=== PATIENT | male | born 2000 | race Caucasian/White ===

== ENCOUNTER 2019-07-10 20:42 | Emergency (ER) | payer BC ==
[~2019-07-10] VITALS: Ht 180.3 cm; Wt 65.0 kg
[2019-07-10] MEDS ORDERED: LORazepam 2 mg/ml vial IV ONE (21:10)
[2019-07-10] MEDS ORDERED: normal saline 1000ML IV soln IVB ONE ×2 (21:10→22:05)
[2019-07-10] MEDS ORDERED: metoclopramide 5 mg/ml inj IV ONE (21:10)
[2019-07-10 21:32] LABS: BASOPHILS % (AUTO) 0.2 % (0-1); EOSINOPHILS % (AUTO) 0 % (0-6); HEMATOCRIT 44.1 % (42.0-52.0); HEMOGLOBIN 15.1 g/dl (14.0-17.9); LYMPHOCYTES # (AUTO) 0.9 X10'3 (1.1-4.8); LYMPHOCYTES % (AUTO) 6.5 % (21-51); MEAN CORPUSCULAR HEMOGLOBIN 30.4 PG (27.0-31.0); MEAN CORPUSCULAR HGB CONC 34.2 g/dL (33.0-36.5); MEAN CORPUSCULAR VOLUME 88.8 FL (78-98); MEAN PLATELET VOLUME 7.9 FL (7.4-10.4); MONOCYTES # (AUTO) 0.6 X10'3 (0-0.9); NEUTROPHILS # (AUTO) 13.1 X10'3 (1.8-7.7); NEUTROPHILS % (AUTO) 89.3 % (42-75); PLATELET COUNT 185 X10'3 (140-440); RED BLOOD COUNT 4.97 X10'6 (4.70-6.10); RED CELL DISTRIBUTION WIDTH 12.8 % (11.5-14.5); WHITE BLOOD COUNT 14.6 X10'3 (4.5-11.0)
[2019-07-10 21:43] LABS: ALANINE AMINOTRANSFERASE 22 U/L (12-78); ALBUMIN 4.6 G/DL (3.4-5.0); ALBUMIN/GLOBULIN RATIO 1.3 (1.1-1.5); ALKALINE PHOSPHATASE 77 IU/L (20-180); ANION GAP 20 (8-16); ASPARTATE AMINO TRANSFERASE 24 U/L (10-37); BILIRUBIN,TOTAL 0.6 MG/DL (0.1-1.0); BLOOD UREA NITROGEN 10 MG/DL (7-18); CALCIUM 9.4 MG/DL (8.5-10.1); CHLORIDE 104 MMOL/L (99-107); CREATININE 0.77 MG/DL (0.60-1.10); GLUCOSE 123 MG/DL (70-104); LIPASE 86 U/L (73-393); SODIUM 143 MMOL/L (135-145); TOTAL CARBON DIOXIDE 19.1 MMOL/L (24-32); TOTAL PROTEIN 8.2 G/DL (6.4-8.2); eGFR > 90 ML/MIN
--- NOTE | 2019-07-10 22:04 | NUR ---
PT MOTHER IS BRENT CONTACT [phone].
[2019-07-10] MEDS ORDERED: proCHLORperazine 10 MG/2 ml inj IV PRN (22:05)
[2019-07-11] MEDS ORDERED: ondansetron/PF 4mg/2ml inj IV ONE
[2019-07-11 00:34] VITALS: BP 113/53
== END 2019-07-11 00:37 | disposition home or self-care (01) ==
LOC: ER 20:43
DX: R11.2 Nausea with vomiting, unspecified (principal); R07.89 Other chest pain
CPT/HCPCS: 36415; 71045; 80053; 83605; 83690; 85025; 93005; 96374; 96375; 99284; J0780; J2060; J2765; J7030